=== PATIENT | female | born 1940 ===

== ENCOUNTER → 2017-01-25 | Outpatient (REF) ==
[2017-01-25 12:05] LABS: PH 6 (5-8); SQUAMOUS EPITHELIAL 0-2 /hpf; URINE APPEARANCE Cloudy; URINE BACTERIA Rare /hpf; URINE BILIRUBIN Negative (NEGATIVE); URINE BLOOD Negative (NEGATIVE); URINE COLOR Yellow; URINE GLUCOSE Negative (NEGATIVE); URINE KETONE Negative (NEGATIVE); URINE WBC >50 /hpf
== END ==
LOC: ZCOL.LAB 11:55
PROVIDERS: Internal Medicine
DX: R30.0 Dysuria (principal)